=== PATIENT | female | born 1990 ===

== ENCOUNTER 2022-12-13 07:15 | Emergency (ER) | payer OTHER ==
[~2022-12-13] VITALS: Ht 150 cm; Wt 71.6 kg
[2022-12-13] MEDS ORDERED: Tetanus/Diphtheria/Pertussis (Acell) ADULT Vaccine 0.5 ML IM ONE (07:30)
[2022-12-13] MEDS ORDERED: LIDOCAINE 1% INJ 20 ML VIAL IJ ONE (07:30)
--- NOTE | 2022-12-13 07:34 | ED Upper Extremity ---
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, CUTTING HER RIGHT INDEX FINGER OCCURRED JUST PRIOR TO ARRIVAL LAST TETANUS IS UNKNOWN NO MEDICAL PROBLEMS PT HAS NEVER BEEN TO A HOSPITAL NEVER HAD STITCHES BEFORE PCP: NONE Allergies and Home Medications Allergies Coded Allergies: No Known Drug Allergies (Unverified , 12/13/22) Patient Home Medication List Home Medication List Reviewed: Yes Cephalexin (Cephalexin) 500 Mg Tablet, 500 MG PO QID Prescribed by: EMERSON SÁNCHEZ on 12/13/22 0811 Review of Systems Constitutional: no symptoms reported Musculoskeletal: see HPI Skin: see HPI Psychiatric/Neurological: No Symptoms Reported Past Qqldxuw-Tsigzx-Yyqjur Hx Patient Social History Tobacco Use?: No Substance use?: No Alcohol Use?: No Immunizations Up To Date Tetanus Booster (TDap): Unknown Past Medical History Surgeries: No Respiratory: No Cardiac: No Neurological: No Genitourinary: No Gastrointestinal: No Musculoskeletal: No Endocrine: No HEENT: No Cancer: No Psychosocial: No Integumentary: No Blood Disorders: No Physical Exam Vital Signs Vital Signs - First Documented 12/13/22 07:27 Temp 37.3 Pulse 111 Resp 16 B/P (MAP) 166/106 (126) Pulse Ox 97 Capillary Refill : Height, Weight, BMI Height: '" Weight: lbs. oz. kg; BMI Method: General Appearance: WD/WN, no apparent distress Hand: Right (RIGHT INDEX FINGER--PALMAR ASPECT OF DISTAL PHALANX/FINGER PAD WITH 2.5 CM LACERATION. BLEEDING CONTROLLED WITH PRESSURE AT THIS TIME. DISTAL SENSATION INTACT. GOOD CAPILLARY REFILL. MOTOR INTACT--FULL FLEXION AND EXTENSION OF FINGER) Procedures/Interventions Other Wound Location RIGHT INDEX FINGER Wound Length (cm): 2.5 Wound's Depth, Shape: linear, sub Q Wound Explored: clean Irrigated w/ Saline (ccs): 50 Betadine Prep?: No (BETASEPT) Anesthesia: 1% Lidocaine Suture: Ethlion Suture Size: 4-0 Number of Sutures: 6 Sterile Dressing Applied?: Yes Progress STAX SPLINT/FINGER GUARD APPLIED Progress/Results/Core Measures Results/Orders My Orders Orders - EMERSON SÁNCHEZ DO Finger(S) (12/13/22 07:30) Dipht/Pertuss(Acell)/Tet Adult (Dipht/Pe (12/13/22 07:30) Lidocaine 1% Inj 20 Ml (Xylocaine 1% Inj (12/13/22 07:30) Lidocaine 1% Inj 10 Ml (Xylocaine 1% Inj (12/13/22 07:38) Medications Given in ED Current Medications Medications Dose Ordered Sig/Joselyn Route Start Time Stop Time Status Last Admin Dose Admin Diphtheria/ Tetanus/Acell Pertussis 0.5 ml ONCE ONCE IM 12/13/22 07:30 12/13/22 07:31 DC 12/13/22 07:43 0.5 ML Vital Signs/I&O 12/13/22 07:27 Temp 37.3 Pulse 111 Resp 16 B/P (MAP) 166/106 (126) Pulse Ox 97 Progress Progress Note : Progress Note DTP VACCINATION GIVEN NO PRIOR VISITS HERE Departure Impression Primary Impression: Laceration of right index finger Additional Impression: Rhogmylnvl-lurzkzwab-ueqarvd (DPT) vaccination administered at current visit Disposition: 01 HOME, SELF-CARE Condition: Stable Departure-Patient Inst. Decision time for Depature: 08:08 Referrals: NO,LOCAL PHYSICIAN (PCP) Primary Care Physician [facility] Patient Instructions: Laceration Repair With Stitches ED, Diphtheria and Tetanus Toxoids, and Acellular Pertussis Vaccine Add. Discharge Instructions: LEAVE DRESSING IN PLACE FOR 24 HOURS, AFTER THAT YOU MAY GENTLY CLEAN THE WOUND TWICE A DAY WITH SOAP AND WATER ON A Q-TIP OTHERWISE KEEP THE AREA CLEAN AND DRY APPLY FRESH DRESSING TWICE A DAY AND WEAR FINGER GUARD AT ALL TIMES TYLENOL AND MOTRIN NEEDED FOR PAIN FOLLOW UP WITH OCCUPATIONAL HEALTH AT [facility] FOR FURTHER CARE NO WORK UNTIL CLEARED BY OCCUPATIONAL HEALTH SUTURES OUT IN 10 DAYS Scripts Cephalexin (Cephalexin) 500 Mg Tablet 500 MG PO QID, #20 TAB 0 Refills Prov: EMERSON SÁNCHEZ DO 12/13/22 EMERSON SÁNCHEZ DO Dec 13, 2022 07:34
[2022-12-13] MEDS ORDERED: LIDOCAINE 1% INJ 10 ML VIAL ONE (07:38)
--- NOTE | 2022-12-13 08:10 | Diagnostic Imaging Report ---
INDICATION: Finger pain. 3 views were obtained FINDINGS: The alignment is normal. There is no fracture or dislocation. There is a slightly dense round soft tissue density along the volar aspect of the 2nd DIP joint. This is of uncertain etiology. The soft tissues are otherwise unremarkable. IMPRESSION: Abnormal hyperdense round soft tissue density along the volar aspect of the DIP joint of the right 2nd finger. Recommend clinical correlation. No fracture or dislocation Dictated by: Dictated on workstation # [id number]
[2022-12-13] MEDS ORDERED: CEPH500T PO (08:11)
[2022-12-13 08:22] VITALS: BP 166/106
== END 2022-12-13 08:22 | disposition home or self-care (01) ==
LOC: ER 07:19
DX: S61.210A Laceration without foreign body of right index finger without damage to nail, initial encounter (principal); Z23 Encounter for immunization; W26.0XXA Contact with knife, initial encounter; Y92.511 Restaurant or cafe as the place of occurrence of the external cause; Y99.0 Civilian activity done for income or pay
CPT/HCPCS: 12002; 73140; 90715

== ENCOUNTER 2023-02-10 18:00 | Emergency (ER) | payer BC ==
[~2023-02-10] VITALS: Ht 165 cm; Wt 68.0 kg
[~2023-02-10 18:00] MED LIST: CEPH500T PO
[2023-02-10] MEDS ORDERED: NS IV 1000 ML 1,000 ML IV STA ×2 (18:20→19:50)
--- NOTE | 2023-02-10 18:25 | ED Abdominal Pain ---
General Chief Complaint: Abdominal/GI Problems Stated Complaint: RT SIDE PAIN, HEADACHE, VOMITING Source of Information: Patient Exam Limitations: No Limitations History of Present Illness Date Seen by Provider: Feb 10, 2023 Time Seen by Provider: 18:23 Initial Comments Patient is a 32-year-old female presents ED with right-sided abdominal pain. She has been experiencing pain for the past week. Pain is described as sharp without radiation. This pain became worse and constant since yesterday. She did vomit yesterday. She states she has not able to eat secondary to the pain. Denies any diarrhea. Finished her menstrual cycle 2 days ago. No history of previous abdominal surgery. Has been taken Tylenol Motrin without much improvement. Patient in moderate distress on arrival. She denies chest pain, shortness of breath, sore throat, ear pain, fever, chills, pain with urination frequent urination. Allergies and Home Medications Allergies Coded Allergies: No Known Drug Allergies (Unverified , 12/13/22) Patient Home Medication List Home Medication List Reviewed: Yes Cephalexin (Cephalexin) 500 Mg Tablet, 500 MG PO QID Prescribed by: EMERSON SÁNCHEZ on 12/13/22810 Ciprofloxacin HCl (Cipro) 500 Mg Tablet, 500 MG PO BID Prescribed by: NABEEL CHAPA on 02/10/232049 Ondansetron (Ondansetron Odt) 4 Mg Tab.rapdis, 4 MG SL Q4H PRN for NAUSEA/VOMITING Prescribed by: NABEEL CHAPA on 02/10/232049 Review of Systems Review of Systems Constitutional: No chills, No diaphoresis, No malaise, No weakness EENTM: No Double Vision, No Eye Pain Respiratory: Denies Cough, Denies Orthopnea Cardiovascular: Denies Chest Pain Gastrointestinal: Abdominal Pain; Denies Diarrhea; Nausea, Vomiting Genitourinary: Denies Burning, Denies Discharge, Denies Drainage, Denies Frequency, Denies Flank Pain Musculoskeletal: No back pain, No joint pain, No joint swelling, No muscle stiffness Skin: No change in color, No change in hair/nails All Other Systems Reviewed Negative Unless Noted: Yes Past Adpurcq-Clmxaa-Lwtnbj Hx Immunizations Up To Date Tetanus Booster (TDap): Unknown Past Medical History Surgery/Hospitalization HX: pt presents to ed via pov from work with complaints of 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 Surgeries: No Respiratory: No Cardiac: No Neurological: No Genitourinary: No Gastrointestinal: No Musculoskeletal: No Endocrine: No HEENT: No Cancer: No Psychosocial: No Integumentary: No Blood Disorders: No Physical Exam Vital Signs Vital Signs - First Documented 02/10/23 18:14 Temp 39.5 Pulse 127 Resp 18 B/P (MAP) 130/78 (95) Pulse Ox 98 O2 Delivery Room Air Capillary Refill : Height/Weight/BMI Height: '" Weight: lbs. oz. kg; 31.00 BMI Method: General Appearance: WD/WN, no apparent distress HEENT: PERRL/EOMI, normal ENT inspection, TMs normal, pharynx normal Neck: non-tender, full range of motion, supple Respiratory: chest non-tender, lungs clear, normal breath sounds, no respiratory distress, no accessory muscle use Cardiovascular: regular rate, rhythm, no edema, no gallop, no JVD Gastrointestinal: normal bowel sounds, soft, no organomegaly, no pulsatile mass, tenderness (Right lower quadrant tenderness, right upper quadrant tenderness. Mild guarding) Extremities: normal range of motion, non-tender, normal inspection, no pedal edema Back: normal inspection, no CVA tenderness Neurologic/Psychiatric: gas prover II-XII nml as tested, no motor/sensory deficits, alert, normal mood/affect, oriented x 3 Skin: normal color, warm/dry Focused Exam Lactate Level 02/10/23 18:46: Lactic Acid Level 0.84 Lactic Acid Level Laboratory Tests Test 02/10/23 18:46 Lactic Acid Level 0.84 MMOL/L (0.50-2.00) Procedures/Interventions Suture Size: 4-0 Progress/Results/Core Measures Results/Orders Lab Results Laboratory Tests Test 02/10/23 18:17 02/10/23 18:28 02/10/23 18:31 02/10/23 18:46 Range/Units Urine Color ORANGE Urine Clarity CLEAR Urine pH 8.5 5-9 Urine Specific Jet 1.015 L 1.016-1.022 Urine Protein 2+ H NEGATIVE Urine Glucose (UA) TRACE H NEGATIVE Urine Ketones 1+ H NEGATIVE Urine Nitrite POSITIVE H NEGATIVE Urine Bilirubin 1+ H NEGATIVE Urine Urobilinogen 4.0 < = 1.0 MG/DL Urine Leukocyte Esterase NEGATIVE NEGATIVE Urine RBC (Auto) TRACE H NEGATIVE Urine RBC 2-5 H /HPF Urine WBC 5-10 H /HPF Urine Squamous Epithelial Cells 5-10 /HPF Urine Crystals NONE /LPF Urine Bacteria MODERATE H /HPF Urine Casts NONE /LPF Urine Mucus NEGATIVE /LPF Urine Culture Indicated YES White Blood Count 14.8 H 4.3-11.0 10^3/uL Red Blood Count 4.40 3.80-5.11 10^6/uL Hemoglobin 11.7 11.5-16.0 g/dL Hematocrit 36 35-52 % Mean Corpuscular Volume 81 80-99 fL Mean Corpuscular Hemoglobin 27 25-34 pg Mean Corpuscular Hemoglobin Concent 33 32-36 g/dL Red Cell Distribution Width 15.0 H 10.0-14.5 % Platelet Count 326 130-400 10^3/uL Mean Platelet Volume 10.5 9.0-12.2 fL Immature Granulocyte % (Auto) 2 % Neutrophils (%) (Auto) 83 H 42-75 % Lymphocytes (%) (Auto) 8 L 12-44 % Monocytes (%) (Auto) 6 0-12 % Eosinophils (%) (Auto) 0 0-10 % Basophils (%) (Auto) 0 0-10 % Neutrophils # (Auto) 12.3 H 1.8-7.8 10^3/uL Lymphocytes # (Auto) 1.2 1.0-4.0 10^3/uL Monocytes # (Auto) 0.9 0.0-1.0 10^3/uL Eosinophils # (Auto) 0.0 0.0-0.3 10^3/uL Basophils # (Auto) 0.0 0.0-0.1 10^3/uL Immature Granulocyte # (Auto) 0.4 H 0.0-0.1 10^3/uL Neutrophils % (Manual) 84 % Lymphocytes % (Manual) 5 % Monocytes % (Manual) 5 % Eosinophils % (Manual) 0 % Basophils % (Manual) 0 % Band Neutrophils 6 % Anisocytosis SLIGHT Sodium Level 135 135-145 MMOL/L Potassium Level 3.2 L 3.6-5.0 MMOL/L Chloride Level 104 98-107 MMOL/L Carbon Dioxide Level 21 21-32 MMOL/L Anion Gap 10 5-14 MMOL/L Blood Urea Nitrogen 9 7-18 MG/DL Creatinine 0.70 0.60-1.30 MG/DL Estimat Glomerular Filtration Rate 119 BUN/Creatinine Ratio 13 Glucose Level 140 H 70-105 MG/DL Calcium Level 9.0 8.5-10.1 MG/DL Corrected Calcium 9.2 8.5-10.1 MG/DL Total Bilirubin 0.3 0.1-1.0 MG/DL Aspartate Amino Transf (AST/SGOT) 25 5-34 U/L Alanine Aminotransferase (ALT/SGPT) 39 0-55 U/L Alkaline Phosphatase 152 H 40-136 U/L Total Protein 7.3 6.4-8.2 GM/DL Albumin 3.7 3.2-4.5 GM/DL Lipase 21 8-78 U/L Serum Test, Qualitative NEGATIVE NEGATIVE Influenza Type A (RT-PCR) Not Detected Not Detecte Influenza Type B (RT-PCR) Not Detected Not Detecte SARS-CoV-2 RNA (RT-PCR) Not Detected Not Detecte Lactic Acid Level 0.84 0.50-2.00 MMOL/L My Orders Orders - PENNY MIGUEL Ua Culture If Indicated (02/10/23 18:07) Cbc And Automated Diff (02/10/23 18:20) Comprehensive Metabolic Panel (02/10/23 18:20) Lipase (02/10/23 18:20) Ct Abd/Pelv W (Appendicitis) (02/10/23 18:20) Ns Iv 1000 Ml (Ns Iv 1000 Ml) (02/10/23 18:20) Ondansetron Injection (Ondansetron Inj (02/10/23 18:30) Morphine Injection (Morphine Injection (02/10/23 18:30) Hcg,Qualitative Serum (02/10/23 18:20) Covid 19 Inhouse Test (02/10/23 18:29) Influenza A And B By Pcr (02/10/23 18:29) Ketorolac Injection (Ketorolac Injection (02/10/23 18:30) Blood Culture (02/10/23 18:30) Lactic Acid Analyzer (02/10/23 18:30) Manual Differential (02/10/23 18:28) Urine Culture (02/10/23 18:17) Blood Culture (02/10/23 18:35) Iohexol Injection (Omnipaque 350 Mg/Ml 1 (02/10/23 19:15) Ns (Ivpb) 100 Ml (Sodium Chloride 0.9% 1 (02/10/23 19:15) Ceftriaxone Iv/Im (Ceftriaxone Iv/Im) (02/10/23 19:43) Ns Iv 1000 Ml (Ns Iv 1000 Ml) (02/10/23 19:50) Ceftriaxone Iv/Im (Ceftriaxone Iv/Im) (02/10/23 19:50) Ns Iv 1000 Ml (Ns Iv 1000 Ml) (02/10/23 19:56) Neis John Dna Urine Test (02/10/23 20:16) Chlamydia Trachomatis Urine (02/10/23 20:16) Medications Given in ED Current Medications Medications Dose Ordered Sig/Joselyn Route Start Time Stop Time Status Last Admin Dose Admin Iohexol 100 ml ONCE ONCE IV 02/10/23 19:15 02/10/23 19:16 DC 02/10/23 19:11 80 ML Ketorolac Tromethamine 30 mg ONCE ONCE IVP 02/10/23 18:30 02/10/23 18:31 DC 02/10/23 18:54 30 MG Morphine Sulfate 4 mg ONCE ONCE IVP 02/10/23 18:30 02/10/23 18:31 DC 02/10/23 18:32 4 MG Ondansetron HCl 4 mg ONCE ONCE IVP 02/10/23 18:30 02/10/23 18:31 DC 02/10/23 18:31 4 MG Sodium Chloride 100 ml ONCE ONCE IV 02/10/23 19:15 02/10/23 19:16 DC 02/10/23 19:11 80 ML Vital Signs/I&O 02/10/23 02/10/23 18:14 20:56 Temp 39.5 Pulse 127 80 Resp 18 20 B/P (MAP) 130/78 (95) 98/64 Pulse Ox 98 98 O2 Delivery Room Air Room Air Departure Communication (PCP) Reviewed previous ER visits, H&P, lab testing. Differential diagnosis appendicitis, cholecystitis, cholelithiasis, cystitis, pyelonephritis, colitis. Patient tachycardic and febrile on arrival. Septic work-up was initiated. She received Toradol. Patient was febrile at 103. Started on a liter of fluid. CBC showed a white blood count of 14. Left shift with bands. Chemistry potassium of 3.2. Glucose 140. Normal lactic acid. Normal kidney function liver function. Urinalysis positive for infection. Negative for . CT abdomen pelvis shows marked inflammatory changes about the right kidney concerning for pyelonephritis. Early changes of pyelonephritis on the left. Inflammatory changes about the duodenal sweep which is likely reactive. Appendix unremarkable. Bibasilar infiltrates. Likely reactive adenopathy. Due her presentation suggest admission for IV antibiotics IV fluids. She did gloriaiv gary Steven here. She was refusing admission and was requesting something oral to take at home at this time and if symptoms worsen she would return. Discussed with patient that this may potentially get worse and become septic. She acknowledges. Will discharge with oral Cipro due to extensive infection. I did add chlamydia and gonorrhea. Not concern for sexual transmitted faction at this time. provided oral Zofran. Slight improvement of her temperature to 102. She was not wanting to wait at this time and wanted to be discharged. Suggest follow-up your PCP in 1 to 2 days for reevaluation. If any worsening abdominal pain, flank pain or fever or vomiting you need to return for IV antibiotics. Patient may improve with oral antibiotics however my concern with bilateral pyelonephritis this may get worse. Impression Primary Impression: Pyelonephritis Disposition: 01 HOME, SELF-CARE Condition: Stable Departure-Patient Inst. Decision time for Depature: 20:48 Referrals: [facility] [place] ([place]P/Family) Primary Care Physician Patient Instructions: Urinary Tract Infection, Adult ED Add. Discharge Instructions: Needed take antibiotic as prescribed. Suggest follow-up your PCP in 1-2 days for reevaluation. If any worsening symptoms such as back pain, abdominal pain vomiting to return back to ED. All discharge instructions reviewed with patient and/or family. Voiced understanding. Scripts Ondansetron (Ondansetron Odt) 4 Mg Tab.rapdis 4 MG SL Q4H PRN for NAUSEA/VOMITING, #6 TAB Prov: PENNY MIGUEL 02/10/23 Ciprofloxacin HCl (Cipro) 500 Mg Tablet 500 MG PO BID for 7 Days, #14 TAB Prov: PENNY MIGUEL 02/10/23 PENNY MIGUEL Feb 10, 2023 18:25
[2023-02-10] MEDS ORDERED: morphine INJ 4 MG/ML 1 ML (VIAL/SYRINGE) IVP ONE (18:30)
[2023-02-10] MEDS ORDERED: ONDANSETRON INJECTION 4 MG/2 ML (SDV) IVP ONE (18:30)
[2023-02-10] MEDS ORDERED: KETOROLAC INJ 30 MG/ML VIAL IVP ONE (18:30)
[2023-02-10 18:33] LABS: BASOPHILS % (AUTO) 0 % (0-10); EOSINOPHILS % (AUTO) 0 % (0-10); HEMATOCRIT 36 % (35-52); HEMOGLOBIN 11.7 g/dL (11.5-16.0); LYMPHOCYTES # (AUTO) 1.2 10^3/uL (1.0-4.0); LYMPHOCYTES % (AUTO) 8 % (12-44); MEAN CORPUSCULAR HEMOGLOBIN 27 pg (25-34); MEAN CORPUSCULAR HGB CONC 33 g/dL (32-36); MEAN CORPUSCULAR VOLUME 81 fL (80-99); MEAN PLATELET VOLUME 10.5 fL (9.0-12.2); MONOCYTES # (AUTO) 0.9 10^3/uL (0.0-1.0); MONOCYTES % (AUTO) 6 % (0-12); NEUTROPHILS # (AUTO) 12.3 10^3/uL (1.8-7.8); NEUTROPHILS % (AUTO) 83 % (42-75); PLATELET COUNT 326 10^3/uL (130-400); WHITE BLOOD COUNT 14.8 10^3/uL (4.3-11.0)
[2023-02-10 18:37] LABS: BILIRUBIN,URINE 1+ (NEGATIVE); CLARITY,URINE CLEAR; COLOR,URINE ORANGE; GLUCOSE, URINE (UA) TRACE (NEGATIVE); KETONES,URINE 1+ (NEGATIVE); NITRITE,URINE POSITIVE (NEGATIVE); PH,URINE 8.5 (5-9); PROTEIN,URINE 2+ (NEGATIVE)
[2023-02-10 18:38] LABS: BACTERIA,URINE MODERATE /HPF
[2023-02-10 18:39] LABS: LEUKOCYTE ESTERASE ,URINE NEGATIVE (NEGATIVE)
[2023-02-10 18:51] LABS: ALBUMIN 3.7 GM/DL (3.2-4.5); BAND NEUTROPHILS 6 %; LYMPHOCYTES % (MANUAL) 5 %; NEUTROPHILS % (MANUAL) 84 %; POTASSIUM 3.2 MMOL/L (3.6-5.0)
[2023-02-10 18:52] LABS: ANISOCYTOSIS SLIGHT; BASOPHILS % (MANUAL) 0 %; EOSINOPHILS % (MANUAL) 0 %; MONOCYTES % (MANUAL) 5 %
[2023-02-10 18:54] LABS: TOTAL PROTEIN 7.3 GM/DL (6.4-8.2)
[2023-02-10 18:56] LABS: BILIRUBIN,TOTAL 0.3 MG/DL (0.1-1.0)
[2023-02-10 18:57] LABS: CREATININE SERUM 0.7 MG/DL (0.60-1.30)
[2023-02-10] MEDS ORDERED: NS 100 ML (IVPB) BAG IV ONE (19:15)
[2023-02-10] MEDS ORDERED: IOHEXOL 350 MG/ML 100 ML (OMNIPAQUE 350) VIAL IV ONE (19:15)
--- NOTE | 2023-02-10 19:42 | Diagnostic Imaging Report ---
INDICATION: Nausea, vomiting, right lower quadrant pain and fever x 4 days. EXAMINATION: CT abdomen and pelvis with contrast, 02/10/2023. All CT scans use one or more of the following dose optimizing techniques: automated exposure control, MA and/or KvP adjustment based on patient size and exam type or iterative reconstruction. FINDINGS: There are bibasilar infiltrates at the lung bases. The liver, gallbladder, spleen and pancreas as well as adrenal glands unremarkable. There is heterogeneity and enhancement of both kidneys, much worse on the right. There is fat stranding about the right kidney. There is bilateral hydronephrosis, mild in nature, right greater than left. There are no distal obstructive stones. The urinary bladder unremarkable. Appendix normal. Prominent lymph nodes in the right lower quadrant likely reactive. Inflammatory change is seen about the right aspect of the proximal duodenum likely due to the findings in the adjacent kidney. A duodenitis less likely. There is no free air. No significant free fluid. No acute osseous abnormality is appreciated IMPRESSION: 1. Marked inflammatory change about the right kidney with abnormal enhancement and hydronephrosis. Findings highly suspicious for pyelonephritis. Early changes of pyelonephritis suspected on the left, as above. 2. Inflammatory change about the duodenal sweep which is likely reactive from the adjacent findings in the kidney with duodenitis less likely. 3. Appendix unremarkable. 4. Bibasilar infiltrates. 5. Likely reactive adenopathy. Dictated by: Dictated on workstation # [id number]
[2023-02-10] MEDS ORDERED: cefTRIAXone IV/IM 1,000 MG in NS (IVPB) 50 ML 50 ML IV STA ×2 (19:43→19:50)
[2023-02-10] MEDS ORDERED: NS IV 1000 ML 1,000 ML ONE (19:56)
[2023-02-10] MEDS ORDERED: ONDA4TAB11 SL (20:50)
[2023-02-10] MEDS ORDERED: CIPR-225 PO (20:50)
[2023-02-10 20:56] VITALS: BP 98/64
[2023-02-11] MEDS ORDERED: ONDA4TAB11 SL (14:36)
[2023-02-11] MEDS ORDERED: CIPR-225 PO (14:36)
[2023-02-14] MEDS ORDERED: SULF1TAB38 PO ×2 (10:48→11:39)
== END 2023-02-10 20:59 | disposition home or self-care (01) ==
LOC: EDUNIT# 18:00 → ER 18:06
DX: N12 Tubulo-interstitial nephritis, not specified as acute or chronic (principal)
CPT/HCPCS: 36415; 74177; 80053; 81000; 83605; 83690; 84703; 85007; 85027; 87040; 87077; 87088; 87186; 87491; 87591; 87636; 96361; 96365; 96375

== ENCOUNTER 2023-02-11 12:15 | Inpatient (IN) | payer BC ==
[~2023-02-11] VITALS: Ht 162.6 cm; Wt 65.8 kg
[~2023-02-11 12:15] MED LIST changes: +CIPR-225 PO; +ONDA4TAB11 SL
[2023-02-11] MEDS ORDERED: NS IV 1000 ML 1,000 ML IV STA (12:27)
--- NOTE | 2023-02-11 12:55 | ED Abdominal Pain ---
General Chief Complaint: Abdominal/GI Problems Stated Complaint: ABD PAIN Nursing Triage Note: PT PRESENTS WITH RT UPPER ABD PAIN, WAS SEEN HERE LAST NIGHT FOR THE SAME, DX WITH UTI AND KIDNEY INFECTION Source of Information: Patient Exam Limitations: No Limitations (PENNY MIGUEL) History of Present Illness Date Seen by Provider: Feb 11, 2023 Time Seen by Provider: 12:55 Initial Comments Patient is a 32-year-old female who presents to the ED with right-sided abdominal pain. Pain to her right upper quadrant and right flank. She reports pain over the past week. Pain became worse over the past few days. Patient states she Was seen here yesterday diagnosed with pyelonephritis. It was recommend admission but she wanted to attempt oral antibiotics. Since she went home continue worsening pain vomiting. No improvement with rgqx-alb-jqwygnw pain medication. She is continue having pain with urination and feeling feverish. Denies any diarrhea. She was able to take 1 dose of Cipro. She denies chest pain, shortness of breath, cough, visual changes. (PENNY MIGUEL) Allergies and Home Medications Allergies Coded Allergies: No Known Drug Allergies (Unverified , 12/13/22) Patient Home Medication List Home Medication List Reviewed: Yes (PENNY MIGUEL) Ciprofloxacin HCl (Cipro) 500 Mg Tablet, 500 MG PO BID, (Reported) Entered as Reported by: SHANNON ABDI on 02/11/231435 Last Action: Reviewed Ondansetron (Ondansetron Odt) 4 Mg Tab.rapdis, 4 MG SL Q4H PRN for NAUSEA/VOMITING-1ST LINE, (Reported) Entered as Reported by: SHANNON ABDI on 02/11/23 143 Last Action: Reviewed Discontinued Medications Cephalexin (Cephalexin) 500 Mg Tablet, 500 MG PO QID Discontinued Reason: No Longer Taking Prescribed by: EMERSON SÁNCHEZ on 12/13/22 0811 Last Action: Discontinued Ciprofloxacin HCl (Cipro) 500 Mg Tablet, 500 MG PO BID Discontinued Reason: Duplicate Order Prescribed by: NABEEL CHAPA on 02/10/232049 Last Action: Discontinued Ondansetron (Ondansetron Odt) 4 Mg Tab.rapdis, 4 MG SL Q4H PRN for NAUSEA/VOMITING Discontinued Reason: Duplicate Order Prescribed by: NABEEL CHAPA on 02/10/232049 Last Action: Discontinued Review of Systems Review of Systems Constitutional: No chills, No diaphoresis, No malaise, No weakness EENTM: No Double Vision, No Eye Pain Respiratory: Denies Cough Cardiovascular: Denies Chest Pain Gastrointestinal: Abdominal Pain; Denies Diarrhea; Nausea, Vomiting Genitourinary: Denies Burning, Denies Discharge Musculoskeletal: No back pain, No joint pain Skin: No change in color, No change in hair/nails Psychiatric/Neurological: Denies Anxiety, Denies Depressed (PENNY MIGUEL) All Other Systems Reviewed Negative Unless Noted: Yes (PENNY MIGUEL) Past Awouqbh-Ztauvc-Pvmkue Hx Patient Social History Tobacco Use?: No Substance use?: No Alcohol Use?: No (PENNY MIGUEL) Immunizations Up To Date Tetanus Booster (TDap): Unknown First/Initial COVID19 Vaccinat: NO (PENNY MIGUEL) Past Medical History Surgery/Hospitalization HX: MED NO HX Surgeries: No Respiratory: No Cardiac: No Neurological: No Last Menstrual Period: Feb 08, 2023 Genitourinary: No Gastrointestinal: No Musculoskeletal: No Endocrine: No HEENT: No Cancer: No Psychosocial: No Integumentary: No Blood Disorders: No (PENNY MIGUEL) Physical Exam Vital Signs Vital Signs - First Documented 02/11/23 12:43 Temp 37.8 Pulse 102 Resp 22 B/P (MAP) 105/69 (81) Pulse Ox 96 O2 Delivery Room Air (OUSMANE MCQUEEN MD) Vital Signs Capillary Refill : Less Than 3 Seconds (PENNY MIGUEL) Height/Weight/BMI Height: '" Weight: lbs. oz. kg; 25.00 BMI Method: General Appearance: WD/WN, no apparent distress HEENT: PERRL/EOMI, normal ENT inspection, TMs normal, pharynx normal Neck: non-tender, full range of motion, supple, normal inspection Respiratory: chest non-tender, lungs clear, normal breath sounds, no res piratory distress, no accessory muscle use Cardiovascular: regular rate, rhythm, no edema, no gallop, no JVD Gastrointestinal: normal bowel sounds, soft, no organomegaly, tenderness (Right upper quadrant tenderness, right flank tenderness. Normal bowel sounds throughout.) Extremities: normal range of motion, non-tender, normal inspection, no pedal edema Back: normal inspection, no CVA tenderness Neurologic/Psychiatric: communications department chairperson II-XII nml as tested, no motor/sensory deficits, alert, normal mood/affect, oriented x 3 Skin: normal color, warm/dry (PENNY MIGUEL) Focused Exam Lactate Level 02/11/23 13:01: Lactic Acid Level 0.87 (OUSMANE MCQUEEN MD) Lactic Acid Level Laboratory Tests Test 02/11/23 13:01 Lactic Acid Level 0.87 MMOL/L (0.50-2.00) (OUSMANE MCQUEEN MD) Procedures/Interventions Suture Size: 4-0 (PENNY MIGUEL) Progress/Results/Core Measures Results/Orders Lab Results Laboratory Tests Test 02/11/23 13:01 02/11/23 13:44 Range/Units White Blood Count 12.2 H 4.3-11.0 10^3/uL Red Blood Count 4.09 3.80-5.11 10^6/uL Hemoglobin 10.7 L 11.5-16.0 g/dL Hematocrit 33 L 35-52 % Mean Corpuscular Volume 81 80-99 fL Mean Corpuscular Hemoglobin 26 25-34 pg Mean Corpuscular Hemoglobin Concent 32 32-36 g/dL Red Cell Distribution Width 15.3 H 10.0-14.5 % Platelet Count 335 130-400 10^3/uL Mean Platelet Volume 10.6 9.0-12.2 fL Immature Granulocyte % (Auto) 1 % Neutrophils (%) (Auto) 81 H 42-75 % Lymphocytes (%) (Auto) 10 L 12-44 % Monocytes (%) (Auto) 7 0-12 % Eosinophils (%) (Auto) 0 0-10 % Basophils (%) (Auto) 0 0-10 % Neutrophils # (Auto) 9.8 H 1.8-7.8 10^3/uL Lymphocytes # (Auto) 1.3 1.0-4.0 10^3/uL Monocytes # (Auto) 0.9 0.0-1.0 10^3/uL Eosinophils # (Auto) 0.0 0.0-0.3 10^3/uL Basophils # (Auto) 0.1 0.0-0.1 10^3/uL Immature Granulocyte # (Auto) 0.2 H 0.0-0.1 10^3/uL Sodium Level 135 135-145 MMOL/L Potassium Level 2.9 L 3.6-5.0 MMOL/L Chloride Level 104 98-107 MMOL/L Carbon Dioxide Level 23 21-32 MMOL/L Anion Gap 8 5-14 MMOL/L Blood Urea Nitrogen 5 L 7-18 MG/DL Creatinine 0.65 0.60-1.30 MG/DL Estimat Glomerular Filtration Rate 121 BUN/Creatinine Ratio 8 Glucose Level 107 H 70-105 MG/DL Lactic Acid Level 0.87 0.50-2.00 MMOL/L Calcium Level 8.6 8.5-10.1 MG/DL Corrected Calcium 9.0 8.5-10.1 MG/DL Total Bilirubin 0.3 0.1-1.0 MG/DL Aspartate Amino Transf (AST/SGOT) 26 5-34 U/L Alanine Aminotransferase (ALT/SGPT) 36 0-55 U/L Alkaline Phosphatase 140 H 40-136 U/L C-Reactive Protein High Sensitivity 30.71 H 0.00-0.50 MG/DL Total Protein 7.0 6.4-8.2 GM/DL Albumin 3.5 3.2-4.5 GM/DL Lipase 15 8-78 U/L Urine Color YELLOW Urine Clarity CLEAR Urine pH 7.0 5-9 Urine Specific [place] 1.025 H 1.016-1.022 Urine Protein 1+ H NEGATIVE Urine Glucose (UA) NEGATIVE NEGATIVE Urine Ketones 1+ H NEGATIVE Urine Nitrite NEGATIVE NEGATIVE Urine Bilirubin NEGATIVE NEGATIVE Urine Urobilinogen 0.2 < = 1.0 MG/DL Urine Leukocyte Esterase 3+ H NEGATIVE Urine RBC (Auto) TRACE H NEGATIVE Urine RBC 0-2 /HPF Urine WBC 10-25 H /HPF Urine Squamous Epithelial Cells 10-25 H /HPF Urine Crystals NONE /LPF Urine Bacteria MODERATE H /HPF Urine Casts NONE /LPF Urine Mucus NEGATIVE /LPF Urine Culture Indicated YES (OUSMANE MCQUEEN MD) My Orders Orders - OUSMANE MCQUEEN MD Ua Culture If Indicated (02/11/23 12:25) (OUSMANE MCQUEEN MD) Medications Given in ED Current Medications Medications Dose Ordered Sig/Joselyn Route Start Time Stop Time Status Last Admin Dose Admin Ondansetron HCl 4 mg ONCE ONCE IVP 02/11/23 13:00 02/11/23 13:01 DC 02/11/23 13:12 4 MG (OUSMANE MCQUEEN MD) Vital Signs/I&O 02/11/23 12:43 Temp 37.8 Pulse 102 Resp 22 B/P (MAP) 105/69 (81) Pulse Ox 96 O2 Delivery Room Air (OUSMANE MCQUEEN MD) Blood Pressure Mean: 81 Departure Communication (PCP) Reviewed previous ER visits, H&P, lab testing. Patient was seen here yesterday diagnosed with right pyelonephritis, potential early pyelonephritis of the left. Pain of the right side of abdomen upper quadrant and right flank for the past week. Vomiting few days ago. Continue vomiting without much pain improvement. patient did receive Rocephin in the ER yesterday and discharged with Cipro. Took 1 dose this morning but then immediately came to the ER. Patient mild- moderate distress. Febrile and tachycardic. Septic work-up was initiated. White blood count noted 12. Potassium 2.9, normal lactic acid, CRP at 30. Did ultrasound right upper quadrant secondary to tenderness which did not show any evidence of acute cholecystitis or cholelithiasis. Fatty liver. CT abdomen pelvis yesterday positive for pyelonephritis. STD cultures pending. Urinalysis positive for infection. She is not concerned for STDs. Patient was started on Zosyn. She started on a liter of fluid. Patient will be admitted to the hospitalist. Discussed patient with Dr. Spangler who agreed to accept patient. accepting under Dr. Dunaway. (PENNY MIGUEL) Impression Primary Impression: Pyelonephritis Disposition: ADMITTED INPATIENT Condition: Stable Admissions Decision to Admit Reason: Admit from ER (General) Decision to Admit/Date: Feb 11, 2023 Time/Decision to Admit Time: 13:01 (PENNY MIGUEL) Departure-Patient Inst. Referrals: [facility] [place] (PCP/Family) Primary Care Physician ATTENDING PHYSICIAN NOTE: I was physically present as attending physician in the emergency department during the care of this patient, but I was not directly involved in the decision making or delivery of care for this patient. (OUSMANE MCQUEEN MD) PENNY MIGUEL Feb 11, 2023 12:55 OUSMANE MCQUEEN MD Feb 11, 2023 22:08
[2023-02-11] MEDS ORDERED: fentaNYL INJECTION 100 MCG/2 ML VIAL IVP STA (12:56)
[2023-02-11] MEDS ORDERED: ONDANSETRON INJECTION 4 MG/2 ML (SDV) IVP ONE (13:00)
[2023-02-11 13:17] LABS: BASOPHILS # (AUTO) 0.1 10^3/uL (0.0-0.1); BASOPHILS % (AUTO) 0 % (0-10); EOSINOPHILS % (AUTO) 0 % (0-10); HEMATOCRIT 33 % (35-52); HEMOGLOBIN 10.7 g/dL (11.5-16.0); LYMPHOCYTES # (AUTO) 1.3 10^3/uL (1.0-4.0); LYMPHOCYTES % (AUTO) 10 % (12-44); MEAN CORPUSCULAR HEMOGLOBIN 26 pg (25-34); MEAN CORPUSCULAR HGB CONC 32 g/dL (32-36); MEAN CORPUSCULAR VOLUME 81 fL (80-99); MEAN PLATELET VOLUME 10.6 fL (9.0-12.2); MONOCYTES # (AUTO) 0.9 10^3/uL (0.0-1.0); MONOCYTES % (AUTO) 7 % (0-12); NEUTROPHILS # (AUTO) 9.8 10^3/uL (1.8-7.8); NEUTROPHILS % (AUTO) 81 % (42-75); PLATELET COUNT 335 10^3/uL (130-400); WHITE BLOOD COUNT 12.2 10^3/uL (4.3-11.0)
[2023-02-11 13:24] LABS: ALBUMIN 3.5 GM/DL (3.2-4.5); POTASSIUM 2.9 MMOL/L (3.6-5.0)
[2023-02-11 13:25] LABS: CALCIUM 8.6 MG/DL (8.5-10.1)
[2023-02-11 13:28] LABS: BILIRUBIN,TOTAL 0.3 MG/DL (0.1-1.0)
[2023-02-11 13:30] LABS: CREATININE SERUM 0.65 MG/DL (0.60-1.30)
--- NOTE | 2023-02-11 13:54 | Diagnostic Imaging Report ---
PROCEDURE: US Gallbladder. TECHNIQUE: Multiple real-time grayscale images were obtained over the right upper quadrant in various projections. INDICATION: Right upper quadrant pain. COMPARISON: Exam is correlated with CT 02/10/2023. FINDINGS: There is echodense fatty infiltration of the liver with areas of fatty sparing, incidentally noted. Gallbladder is normal. No bile duct dilatation. The portal vein is patent and showed normal directional flow. There is no ascites. The unobstructed right kidney at 12 cm, normal. No gallbladder sludge or visible stone. The gallbladder wall is non-thickened. There is no pericholecystic fluid. IMPRESSION: Fatty liver; otherwise, normal right upper quadrant ultrasound. Dictated by: Dictated on workstation # [id number]
[2023-02-11] MEDS ORDERED: ACETAMINOPHEN 325 MG TABLET PO ONE (14:00)
[2023-02-11] MEDS ORDERED: PIPERACILLIN/Tazobactam 4.5 GM in NS (IVPB) 100 ML 100 ML IV ONE (14:00)
[2023-02-11 14:04] LABS: CLARITY,URINE CLEAR; COLOR,URINE YELLOW
[2023-02-11 14:05] LABS: BACTERIA,URINE MODERATE /HPF; BILIRUBIN,URINE NEGATIVE (NEGATIVE); GLUCOSE, URINE (UA) NEGATIVE (NEGATIVE); KETONES,URINE 1+ (NEGATIVE); LEUKOCYTE ESTERASE ,URINE 3+ (NEGATIVE); NITRITE,URINE NEGATIVE (NEGATIVE); PROTEIN,URINE 1+ (NEGATIVE); RBC,URINE 0-2 /HPF
--- NOTE | 2023-02-11 14:22 | History & Physical-Hospitalist ---
RAJAT DUMAS MD, RESIDENT 02/11/23 1422: History of Present Illness HPI/Chief Complaint CC: Fever Patient is a 32-year-old female with no past medical history presenting with abdominal pain. She states the pain started initially in the right upper quadrant about 1 week ago, radiating into her back. On Tuesday, she did notice fever. She states she was evaluated in clinic a couple days later where a urine test was done. Patient was told that she was just dehydrated at the time. However patient notes that pain did not resolve. She presented to the ED yesterday where it was noted that she was septic with pyelonephritis. She was recommended to be admitted to the ED however patient declined at the time. She was sent home with ciprofloxacin which they were not able to machine pecan picker until this morning. However patient took first dose this morning and immediately vomited it up. She is continuing to have some nausea at this time as well as some right upper quadrant and flank pain. She denies any chest pain, shortness of breath, dysuria, suprapubic pain, diarrhea, constipation. No history of abdominal surgeries. Patient not on any medications at home. Source: patient Exam Limitations: no limitations Date Seen 02/11/23 Time Seen by a Provider: 14:18 Attending Physician [facility] PCP Admitting Physician: Cassidy Dunaway DO Attending Physician: Cassidy Dunaway DO Referring Physician Date of Admission Feb 11, 2023 at 13:59 Home Medications & Allergies Home Medications Reviewed patient Home Medication Reconciliation performed by pharmacy medication reconciliations park maintenance technician and/or nursing. Patients Allergies have been reviewed. Allergies Allergies Coded Allergies No Known Drug Allergies (Unverified12/13/22) Past Ufnfyhf-Utmhki-Wllogv Hx Patient Social History Tobacco Use?: No Substance use?: No Alcohol Use?: No Immunizations Up To Date First/Initial COVID19 Vaccinat: NO Tetanus Booster (TDap): Unknown Current Status status: No Primary Language: Georgian Preferred Spoken Language: Georgian Past Medical History Blood Disorders: No Review of Systems Constitutional: chills, fever EENTM: No nose congestion Respiratory: No cough, No dyspnea on exertion, No short of breath Cardiovascular: No chest pain, No edema Gastrointestinal: RUQ; No constipation, No diarrhea; nausea, vomiting Genitourinary: No dysuria Musculoskeletal: back pain Physical Exam Physical Exam Vital Signs Vital Signs - First Documented 02/11/23 12:43 Temp 37.8 Pulse 102 Resp 22 B/P (MAP) 105/69 (81) Pulse Ox 96 O2 Delivery Room Air Capillary Refill : Less Than 3 Seconds Height, Weight, BMI Height: '" Weight: lbs. oz. kg; 25.00 BMI Method: General Appearance: Mild Distress HEENT: Normal ENT Inspection Neck: Full Range of Motion, Normal Inspection Respiratory: Chest Non Tender, Lungs Clear, Normal Breath Sounds, No Accessory Muscle Use, No Respiratory Distress Cardiovascular: Regular Rate, Rhythm, No Edema, No Murmur Gastrointestinal: Normal Bowel Sounds, Soft, Tenderness (Right upper quadrant and right flank tenderness) Back: CVA Tenderness (R) Neurologic/Psychiatric: Alert, Oriented x3 Skin: Normal Color, Warm/Dry Results Results/Procedures Labs Laboratory Tests 02/11/23 13:01 Patient resulted labs reviewed. Imaging: Reviewed Imaging Films, Reviewed Imaging Report Imaging CT abdomen/pelvis (02/10/2023): IMPRESSION: 1. Marked inflammatory change about the right kidney with abnormal enhancement and hydronephrosis. Findings highly suspicious for pyelonephritis. Early changes of pyelonephritis suspected on the left, as above. 2. Inflammatory change about the duodenal sweep which is likely reactive from the adjacent findings in the kidney with duodenitis less likely. 3. Appendix unremarkable. 4. Bibasilar infiltrates. 5. Likely reactive adenopathy. Gallbladder ultrasound (02/11/2023): IMPRESSION: Fatty liver; otherwise, normal right upper quadrant ultrasound. Assessment/Plan Admission Diagnosis 32-year-old female presenting with sepsis secondary to pyelonephritis. Admission Status: Observation Diagnosis/Problems Diagnosis/Problems (1) Sepsis Status: Acute Assessment & Plan: Patient meets sepsis criteria with leukocytosis and tachycar jl. Source of infection at this time is from the urine. Lactate normal. Plan: Continue IV fluids Antibiotics per below Follow-up blood cultures and urine culture Qualifiers: Sepsis type: sepsis due to unspecified organism Sepsis acute organ d ysfunction status: without acute organ dysfunction Qualified Codes: A41.9 - Sepsis, unspecified organism (2) Pyelonephritis Status: Acute Assessment & Plan: Patient noted to have pyelonephritis in the right kidney on CT abdomen/pelvis from yesterday with early signs of pyelonephritis in the left kidney. UA is notable today for infection although does have 10-25 squamous epithelial cells. Plan: Continue treatment with IV Zosyn Follow-up urine culture Pain management (3) RUQ abdominal pain Status: Acute Assessment & Plan: Patient noted to have right upper quadrant pain. Gallbladder ultrasound was negative, notable for fatty liver. Lipase also negative. Likely referred pain from pyelonephritis. (4) Nausea & vomiting Status: Acute Assessment & Plan: Inability to tolerate orals at this time. Plan: Continue IV antibiotics as per above Antiemetics Clear liquid diet, advance as tolerated (5) Hypokalemia Status: Acute Assessment & Plan: Noted to be hypokalemic to 2.9. We will replete with IV potassium. CASSIDY DUNAWAY DO 02/12/23 0619: History of Present Illness HPI/Chief Complaint Chief complaint: Acute pyelonephritis HPI: This is a 32-year-old female who presented with acute abdominal pain and fever found to have pyelonephritis in need of IV antibiotics since p.o. was not tolerated. Source: patient Exam Limitations: no limitations Past Riwlczu-Wmcvmg-Etqofd Hx Patient Social History Marrital Status: Employed/Student: employed Review of Systems Constitutional: see HPI, fever Physical Exam Physical Exam General Appearance: Anxious, Mild Distress Eyes: Right Eye Normal Inspection, Right Eye PERRL HEENT: PERRL/EOMI, TMs Normal, Normal ENT Inspection, Pharynx Normal, Moist Mucous Membranes Neck: Full Range of Motion, Normal Inspection, Non Tender Respiratory: Chest Non Tender, Lungs Clear, Normal Breath Sounds, No Accessory Muscle Use, No Respiratory Distress Cardiovascular: Regular Rate, Rhythm, No Edema, No Gallop, No JVD, No Murmur, Normal Peripheral Pulses Gastrointestinal: Normal Bowel Sounds, No Organomegaly, No Pulsatile Mass, Non Tender, Soft Back: Normal Inspection, No CVA Tenderness, No Vertebral Tenderness Extremity: Normal Capillary Refill, Normal Inspection, Normal Range of Motion, Non Tender, No Calf Tenderness, No Pedal Edema Neurologic/Psychiatric: Alert, Oriented x3, No Motor/Sensory Deficits, Normal Mood/Affect Skin: Normal Color, Warm/Dry Lymphatic: No Adenopathy Assessment/Plan Admission Diagnosis Assessment: Sepsis Pyelonephritis Nausea and vomiting IV antibiotics IV fluids Admission Status: Observation RAJAT DUMAS MD, RESIDENT Feb 11, 2023 14:22 CASSIDY DUNAWAY DO Feb 12, 2023 06:19
[2023-02-11] MEDS ORDERED: ONDA4TAB11 SL (14:36)
[2023-02-11] MEDS ORDERED: CIPR-225 PO (14:36)
[2023-02-11] MEDS ORDERED: LACTULOSE SYRUP 10GM/15ML 30ML UDC PO PRN (15:30)
[2023-02-11] MEDS ORDERED: NALOXONE 0.4 MG/ML 1 ML VIAL IV PRN (15:30)
[2023-02-11] MEDS ORDERED: ONDANSETRON 4 MG ORAL DISSOLVE TABLET PO PRN (15:30)
[2023-02-11] MEDS ORDERED: POTASSIUM CL 10MEQ/50ML IVPB 50 ML IV SCH (15:30)
[2023-02-11] MEDS ORDERED: MILK OF MAGNESIA 400 MG/5 ML 30 ML UDC PO PRN (15:30)
[2023-02-11] MEDS ORDERED: diphenhydrAMINE 25 MG TABLET PO PRN (15:30)
[2023-02-11] MEDS ORDERED: BISACODYL 10 MG SUPPOSITORY PR PRN (15:30)
[2023-02-11] MEDS ORDERED: ACETAMINOPHEN 325 MG TABLET PO PRN (15:30)
[2023-02-11] MEDS ORDERED: diphenhydrAMINE INJ 50 MG/ML VIAL IVP PRN (15:30)
[2023-02-11] MEDS ORDERED: ANTACID SUSPENSION 30 ML UDC PO PRN (15:30)
[2023-02-11] MEDS ORDERED: PIPERACILLIN/Tazobactam 4.5 GM in NS (IVPB) 100 ML 100 ML IV SCH (15:30)
[2023-02-11] MEDS ORDERED: CALCIUM CARBONATE 500 MG CHEW TABLET PO PRN (15:30)
[2023-02-11 15:40] VITALS: BP 107/59
[2023-02-11] MEDS: NS IV 1000 ML 1,000 ML IV SCH ×2 (16:08→22:24)
[2023-02-11] MEDS: ENOXAPARIN 40 MG/0.4 ML SYRINGE SC SCH (16:09)
[2023-02-11] MEDS: POTASSIUM CL 10MEQ/50ML IVPB 50 ML IV SCH ×3 (17:52→22:24)
[2023-02-11 19:28] VITALS: BP 108/59
[2023-02-11] MEDS: PIPERACILLIN/Tazobactam 4.5 GM in NS (IVPB) 100 ML 100 ML IV SCH (20:53)
[2023-02-11] MEDS: DOCUSATE SODIUM 100 MG CAPSULE PO SCH (21:04)
[2023-02-11] MEDS: SENNOSIDES 8.6 MG TABLET PO SCH (21:04)
[2023-02-11] MEDS: ONDANSETRON INJECTION 4 MG/2 ML (SDV) IV PRN (23:40)
[2023-02-11] MEDS: morphine INJ 4 MG/ML 1 ML (VIAL/SYRINGE) IV PRN (23:40)
[2023-02-11 23:44] VITALS: BP 114/64
[2023-02-12] MEDS: POTASSIUM CL 10MEQ/50ML IVPB 50 ML IV SCH (00:20)
[2023-02-12] MEDS: morphine INJ 4 MG/ML 1 ML (VIAL/SYRINGE) IV PRN (03:26)
[2023-02-12] MEDS: PIPERACILLIN/Tazobactam 4.5 GM in NS (IVPB) 100 ML 100 ML IV SCH ×2 (03:56→11:45)
[2023-02-12 04:02] VITALS: BP 114/64
[2023-02-12] MEDS: NS IV 1000 ML 1,000 ML IV SCH ×2 (05:14→15:04)
[2023-02-12 05:15] LABS: HEMATOCRIT 31 % (35-52); HEMOGLOBIN 9.9 g/dL (11.5-16.0); MEAN CORPUSCULAR HEMOGLOBIN 26 pg (25-34); MEAN CORPUSCULAR HGB CONC 33 g/dL (32-36); MEAN CORPUSCULAR VOLUME 80 fL (80-99); MEAN PLATELET VOLUME 10.5 fL (9.0-12.2); PLATELET COUNT 328 10^3/uL (130-400); WHITE BLOOD COUNT 9.8 10^3/uL (4.3-11.0)
[2023-02-12 05:30] LABS: ALBUMIN 3.1 GM/DL (3.2-4.5); POTASSIUM 3.4 MMOL/L (3.6-5.0)
[2023-02-12 05:32] LABS: CALCIUM 8.1 MG/DL (8.5-10.1)
[2023-02-12 05:33] LABS: TOTAL PROTEIN 6.2 GM/DL (6.4-8.2)
[2023-02-12 05:35] LABS: BILIRUBIN,TOTAL 0.3 MG/DL (0.1-1.0)
[2023-02-12 05:36] LABS: CREATININE SERUM 0.63 MG/DL (0.60-1.30)
[2023-02-12] MEDS ORDERED: POTASSIUM CHLORIDE 20 MEQ TABLET PO ONE (06:15)
[2023-02-12 07:30] VITALS: BP 114/70
[2023-02-12] MEDS: DOCUSATE SODIUM 100 MG CAPSULE PO SCH ×2 (07:51→19:48)
[2023-02-12] MEDS: SENNOSIDES 8.6 MG TABLET PO SCH ×2 (07:51→19:47)
--- NOTE | 2023-02-12 09:27 | Progress Note ---
RAJAT DUMAS MD, RESIDENT 02/12/23 0927: Subjective HPI/CC On Admission Date Seen by Provider: Feb 12, 2023 Time Seen by Provider: 08:45 Chief complaint: Acute pyelonephritis HPI: This is a 32-year-old female who presented with acute abdominal pain and fever found to have pyelonephritis in need of IV antibiotics since p.o. was not tolerated. Subjective/Events-last exam Patient doing well this morning. States that her nausea and vomiting has resolved. She is continuing to have right upper quadrant and flank pain but states that it is a 5 out of 10 today and is more tolerable. She is feeling a little bit better compared to when she first came in. Denying any suicidal ideation or homicidal ideation this morning. States her mood is okay today. Review of Systems General: No Fatigue HEENT: No Head Aches Pulmonary: No Dyspnea, No Cough Cardiovascular: No: Chest Pain, Palpitations, Edema Gastrointestinal: Abdominal Pain; No: Nausea, Vomiting, Diarrhea, Constipation Genitourinary: No Dysuria Focused Exam Lactate Level 02/11/23 13:01: Lactic Acid Level 0.87 Objective Exam Vital Signs Vital Signs Date Time Temp Pulse Resp B/P (MAP) Pulse Ox O2 Delivery O2 Flow Rate FiO2 02/12/23 07:30 36.9 93 16 114/70 (85) 95 Room Air Capillary Refill : Less Than 3 Seconds General Appearance: No Apparent Distress HEENT: Normal ENT Inspection Neck: Full Range of Motion, Normal Inspection Respiratory: Chest Non Tender, Lungs Clear, Normal Breath Sounds, No Accessory Muscle Use, No Respiratory Distress Cardiovascular: Regular Rate, Rhythm, No Edema, No Murmur Gastrointestinal: Normal Bowel Sounds, Soft, Tenderness (Mild right flank tenderness however much improved compared to yesterday) Extremity: No Pedal Edema Neurologic/Psychiatric: Alert, Oriented x3 Skin: Normal Color, Warm/Dry Results/Procedures Lab Laboratory Tests 02/11/23 13:01 02/12/23 04:42 Patient resulted labs reviewed. Imaging: Reviewed Imaging Films, Reviewed Imaging Report Assessment/Plan Assessment and Plan Assess & Plan/Chief Complaint 32-year-old female presenting with pyelonephritis. Diagnosis/Problems Diagnosis/Problems (1) Sepsis Status: Resolved Assessment & Plan: Patient meets sepsis criteria with leukocytosis and tachycardia. Source of infection at this time is from the urine. Lactate normal. Sepsis resolved at this time as leukocytosis has resolved and patient is no longer tachycardic. Plan: Continue IV fluids, will discontinue if patient tolerates breakfast Antibiotics per below Follow-up blood cultures and urine culture Qualifiers: Qualified Codes: A41.9 - Sepsis, unspecified organism Resolution Date/Time: 02/12/23 @ 09:25 (2) Pyelonephritis Status: Acute Assessment & Plan: Patient noted to have pyelonephritis in the right kidney on CT abdomen/pelvis from yesterday with early signs of pyelonephritis in the left kidney. UA is notable today for infection although does have 10-25 squamous epithelial cells. Plan: Continue treatment with IV Zosyn Follow-up urine culture, will transition to orals once urine culture is back Pain management (3) RUQ abdominal pain Status: Acute Assessment & Plan: Patient noted to have right upper quadrant pain. Gallbladder ultrasound was negative, notable for fatty liver. Lipase also negative. Likely referred pain from pyelonephritis. (4) Nausea & vomiting Status: Resolved Assessment & Plan: Tolerating oral intake today. Plan: Continue IV antibiotics as per above Antiemetics Clear liquid diet, advance to general today Resolution Date/Time: 02/12/23 @ 09:26 (5) Hypokalemia Status: Acute Assessment & Plan: Hypokalemia to 3.4. We will replete with oral potassium. LUIS JOHNSON DO 02/12/23 1910: Subjective Subjective/Events-last exam Having nausea and vomiting earlier Labs improved UCx pending IV abx maintained Objective Exam General Appearance: No Apparent Distress, WD/WN, Chronically ill Respiratory: Lungs Clear, Normal Breath Sounds Cardiovascular: Regular Rate, Rhythm Assessment/Plan Assessment and Plan Assess & Plan/Chief Complaint IV abx IVF Hold for another day RAJAT DUMAS MD, RESIDENT Feb 12, 2023 09:27 LUIS JOHNSON DO Feb 12, 2023 19:10
[2023-02-12 11:10] VITALS: BP 113/66
[2023-02-12] MEDS: ONDANSETRON INJECTION 4 MG/2 ML (SDV) IV PRN ×2 (11:44→19:55)
[2023-02-12] MEDS: oxyCODONE IMMEDIATE RELEASE 5 MG TABLET PO PRN ×2 (15:05→21:33)
[2023-02-12] MEDS: ENOXAPARIN 40 MG/0.4 ML SYRINGE SC SCH (15:05)
[2023-02-12 15:19] VITALS: BP 114/68
[2023-02-12] MEDS: Sulfamethoxazole/Trimethoprim DS TABLET PO SCH (17:23)
[2023-02-12 19:36] VITALS: BP 117/75
[2023-02-12] MEDS: ACETAMINOPHEN 500 MG TABLET PO PRN (19:55)
[2023-02-12] MEDS: MELATONIN 3 MG TABLET PO PRN (19:55)
[2023-02-12] MEDS ORDERED: PROMETHAZINE INJ 25 MG/ML VIAL IVP PRN (22:00)
[2023-02-12 23:08] VITALS: BP 109/62
[2023-02-13] MEDS: NS IV 1000 ML 1,000 ML IV SCH ×3 (01:26→20:53)
[2023-02-13 03:10] VITALS: BP 102/62
[2023-02-13] MEDS: oxyCODONE IMMEDIATE RELEASE 5 MG TABLET PO PRN ×4 (04:49→20:53)
[2023-02-13 05:58] LABS: HEMATOCRIT 32 % (35-52); HEMOGLOBIN 10.4 g/dL (11.5-16.0); MEAN CORPUSCULAR HEMOGLOBIN 26 pg (25-34); MEAN CORPUSCULAR HGB CONC 33 g/dL (32-36); MEAN CORPUSCULAR VOLUME 80 fL (80-99); MEAN PLATELET VOLUME 10.3 fL (9.0-12.2); PLATELET COUNT 380 10^3/uL (130-400); WHITE BLOOD COUNT 9.6 10^3/uL (4.3-11.0)
[2023-02-13 06:01] LABS: ALBUMIN 3.2 GM/DL (3.2-4.5); POTASSIUM 3.5 MMOL/L (3.6-5.0)
[2023-02-13 06:03] LABS: CALCIUM 8.3 MG/DL (8.5-10.1)
[2023-02-13 06:04] LABS: TOTAL PROTEIN 6.4 GM/DL (6.4-8.2)
[2023-02-13 06:06] LABS: BILIRUBIN,TOTAL 0.2 MG/DL (0.1-1.0)
[2023-02-13 06:07] LABS: CREATININE SERUM 0.59 MG/DL (0.60-1.30)
[2023-02-13 07:55] VITALS: BP 115/73
[2023-02-13] MEDS ORDERED: POTASSIUM CHLORIDE 20 MEQ TABLET PO ONE (08:30)
[2023-02-13] MEDS: MEROPENEM INJECTION 1,000 MG in NS (IVPB) 100 ML 100 ML IV SCH ×2 (09:08→16:48)
[2023-02-13] MEDS: DOCUSATE SODIUM 100 MG CAPSULE PO SCH ×2 (09:08→20:57)
[2023-02-13] MEDS: Sulfamethoxazole/Trimethoprim DS TABLET PO SCH ×2 (09:08→16:47)
[2023-02-13] MEDS: SENNOSIDES 8.6 MG TABLET PO SCH ×2 (09:08→20:57)
--- NOTE | 2023-02-13 10:50 | Progress Note ---
MERI GREENE MD,RESIDENT 02/13/23 1050: Subjective HPI/CC On Admission Chief complaint: Acute pyelonephritis HPI: This is a 32-year-old female who presented with acute abdominal pain and fever found to have pyelonephritis in need of IV antibiotics since p.o. was not tolerated. Subjective/Events-last exam Pt resting in bed this morning. She reports that her pain has improved slightly today. She has minimal PO intake, advanced to regular diet overnight. Remains afebrile. Focused Exam Lactate Level 02/11/23 13:01: Lactic Acid Level 0.87 Objective Exam Vital Signs Vital Signs Date Time Temp Pulse Resp B/P (MAP) Pulse Ox O2 Delivery O2 Flow Rate FiO2 02/13/23 07:55 37.0 84 20 115/73 (87) 99 Room Air Capillary Refill : Less Than 3 Seconds General Appearance: No Apparent Distress Respiratory: Lungs Clear, Normal Breath Sounds, No Accessory Muscle Use, No Respiratory Distress Cardiovascular: Regular Rate, Rhythm Gastrointestinal: Soft, Tenderness (R flank, improved from previous day) Neurologic/Psychiatric: Alert, Oriented x3, No Motor/Sensory Deficits Skin: Warm/Dry Results/Procedures Lab Laboratory Tests 02/13/23 05:37 Patient resulted labs reviewed. Imaging: Reviewed Imaging Films, Reviewed Imaging Report Assessment/Plan Assessment and Plan Assess & Plan/Chief Complaint (1) Sepsis Status: Resolved Assessment & Plan: Patient meets sepsis criteria with leukocytosis and tachycardia. Source of infection at this time is from the urine. Lactate normal. Sepsis resolved at this time as leukocytosis has resolved and patient is no longer tachycardic. Plan: Continue IV fluids, will discontinue if patient tolerates breakfast Antibiotics per below Follow-up blood cultures and urine culture Qualifiers: Qualified Codes: A41.9 - Sepsis, unspecified organism Resolution Date/Time: 02/12/23 @ 09:25 (2) Pyelonephritis Status: Acute Assessment & Plan: Patient noted to have pyelonephritis in the right kidney on CT abdomen/pelvis from yesterday with early signs of pyelonephritis in the left kidney. UA is notable today for infection although does have 10-25 squamous epithelial cells. UCx 02/10 grew ESBL Plan: Discontinue zosyn, started Bactrim and Meropenam in setting of ESBL positive UCx. Will transition to Bactrim only on DC Pain management (3) RUQ abdominal pain Status: Acute Assessment & Plan: Patient noted to have right upper quadrant pain. Gallbladder ultrasound was negative, notable for fatty liver. Lipase also negative. Likely referred pain from pyelonephritis. (4) Nausea & vomiting Status: Resolved Assessment & Plan: Tolerating oral intake today. Plan: Continue IV antibiotics as per above Antiemetics Advanced to regular diet Resolution Date/Time: 02/12/23 @ 09:26 (5) Hypokalemia Status: Acute Assessment & Plan: Hypokalemia to 3.4. We will replete with oral potassium. LUIS JOHNSON DO 02/13/23 1514: Subjective HPI/CC On Admission Date Seen by Provider: Feb 13, 2023 Time Seen by Provider: 09:00 Subjective/Events-last exam ESBL noted on culture 2 days ago Mixed kin on this culture Still some nausea so we will continue IV fluids Changing to meropenem Objective Exam General Appearance: No Apparent Distress, WD/WN, Chronically ill Respiratory: Lungs Clear, Normal Breath Sounds Cardiovascular: Regular Rate, Rhythm Assessment/Plan Assessment and Plan Assess & Plan/Chief Complaint Add meropenem DC Zosyn IV fluids MERI GREENE MD,RESIDENT Feb 13, 2023 10:50 LUIS JOHNSON DO Feb 13, 2023 15:14
[2023-02-13 11:37] VITALS: BP 123/85
[2023-02-13] MEDS: ENOXAPARIN 40 MG/0.4 ML SYRINGE SC SCH (15:26)
[2023-02-13 16:25] VITALS: BP 120/71
[2023-02-13 20:21] VITALS: BP 116/65
[2023-02-13] MEDS: ACETAMINOPHEN 500 MG TABLET PO PRN (20:49)
[2023-02-13 21:58] VITALS: BP 117/67
[2023-02-13] MEDS: MELATONIN 3 MG TABLET PO PRN (22:09)
[2023-02-14] VITALS: BP 106/58
[2023-02-14] MEDS: MEROPENEM INJECTION 1,000 MG in NS (IVPB) 100 ML 100 ML IV SCH ×2 (00:21→08:04)
[2023-02-14 04:37] VITALS: BP 106/65
[2023-02-14] MEDS: oxyCODONE IMMEDIATE RELEASE 5 MG TABLET PO PRN (04:52)
[2023-02-14 06:16] LABS: HEMATOCRIT 33 % (35-52); HEMOGLOBIN 10.5 g/dL (11.5-16.0); MEAN CORPUSCULAR HEMOGLOBIN 26 pg (25-34); MEAN CORPUSCULAR HGB CONC 32 g/dL (32-36); MEAN CORPUSCULAR VOLUME 80 fL (80-99); MEAN PLATELET VOLUME 9.9 fL (9.0-12.2); PLATELET COUNT 444 10^3/uL (130-400)
[2023-02-14 06:35] LABS: ALBUMIN 3.3 GM/DL (3.2-4.5); POTASSIUM 3.8 MMOL/L (3.6-5.0)
[2023-02-14 06:36] LABS: CALCIUM 8.5 MG/DL (8.5-10.1)
[2023-02-14 06:37] LABS: TOTAL PROTEIN 6.7 GM/DL (6.4-8.2)
[2023-02-14 06:39] LABS: BILIRUBIN,TOTAL 0.2 MG/DL (0.1-1.0)
[2023-02-14 06:41] LABS: CREATININE SERUM 0.57 MG/DL (0.60-1.30)
[2023-02-14 07:34] VITALS: BP 117/64
[2023-02-14] MEDS: NS IV 1000 ML 1,000 ML IV SCH (08:04)
[2023-02-14] MEDS: Sulfamethoxazole/Trimethoprim DS TABLET PO SCH (08:04)
[2023-02-14] MEDS: DOCUSATE SODIUM 100 MG CAPSULE PO SCH (08:04)
[2023-02-14] MEDS: SENNOSIDES 8.6 MG TABLET PO SCH (08:05)
[2023-02-14] MEDS ORDERED: SULF1TAB38 PO ×2 (10:48→11:39)
[2023-02-14 11:22] VITALS: BP 122/70
--- NOTE | 2023-02-14 11:37 | Discharge Summary ---
Diagnosis/Chief Complaint Date of Admission Feb 13, 2023 at 15:53 Date of Discharge 02/14/23 Admission Diagnosis Admission Diagnosis Sepsis Pyelonephritis EBSL RUQ abdominal pain Nausea and Vomiting Hypokalemia Suicidal Ideation Discharge Diagnosis See Above Discharge Summary-Simple/Stand Consultations Discharge Physical Examination Allergies: Coded Allergies: No Known Drug Allergies (Unverified , 12/13/22) Vitals & I&Os Vital Sign - Last 12Hours Date Time Temp Pulse Resp B/P (MAP) Pulse Ox O2 Delivery O2 Flow Rate FiO2 02/14/23 11:22 36.5 103 20 122/70 (87) 97 Room Air Intake and Output 02/13/23 23:59 Intake Total 2460 ml Balance 2460 ml General Appearance: Alert, Oriented X3, Other ( translated) Respiratory: Clear to Auscultation, Normal Air Movement Cardiovascular: Regular Rate, No Murmurs Abdominal: Normal Bowel Sounds, Soft, No Tenderness Extremities: No Edema, No Tenderness/Swelling Neuro: Normal Speech, Cranial Nerves 3-12 NL Hospital Course See final discharge diagnosis. Discussion & Recommendations 32 yo F with h/o EBSL pyelonephritis that presented with worsening flank pain and N/V. She was started on IV antibiotics and previous cultures showed EBSL. On day of d/c patient was tolerating PO diet and ambulation. Pain was well controlled. She will have 4 days of oral antibiotics to complete at home. Will have close f.u with PCP Discharge Condition at discharge Stable Instructions to patient/family Please see electronic discharge instructions given to patient. Discharge Medications Reviewed and agree with Discharge Medication list on patient's Discharge Instruction sheet HUYEN RODNEY MD Feb 14, 2023 11:37
--- NOTE | 2023-02-14 11:40 | Discharge Summary ---
Discharge [facility] Reconcile Patient Problems Problems Reviewed?: Yes Discharge Medications New, Converted or Re-Newed RX: Transmitted to Pharmacy New Medications: Sulfamethoxazole/Trimethoprim (Bactrim Ds Tablet) 1 Each Tablet 1 EA PO BID WITH MEALS, #8 TAB Continued Medications: Ondansetron (Ondansetron Odt) 4 Mg Tab.rapdis 4 MG SL Q4H PRN for NAUSEA/VOMITING-1ST LINE, TAB Discontinued Medications: Ciprofloxacin HCl (Cipro) 500 Mg Tablet 500 MG PO BID, TAB FILLED 02-10-2023 #14/7 DAY SUPPLY Sulfamethoxazole/Trimethoprim (Bactrim Ds Tablet) 1 Each Tablet 1 EACH PO BID for 5 Days, #10 TAB 0 Refills Patient Instructions Goal/Follow Up Appt: 1 week with PCP Activity & Diet Discharge Diet: Regular Diet, Low Residue HUYEN RODNEY MD Feb 14, 2023 11:40
[2023-02-14 12:20] VITALS: BP 122/70
== END 2023-02-14 12:27 | disposition home or self-care (01) | DRG 872 ==
LOC: EDUNIT# 12:15 → ER 12:18 → 4TH 13:59 → OBSVTOIN 02-13 15:53 → 4TH 02-14 10:48
PROVIDERS: ADMIT Internal Medicine; ATTEND Family Medicine
DX: A41.9 Sepsis, unspecified organism (principal); Z16.12 Extended spectrum beta lactamase (ESBL) resistance; R45.851 Suicidal ideations; N10 Acute pyelonephritis; B96.20 Unspecified Escherichia coli [E. coli] as the cause of diseases classified elsewhere; E87.6 Hypokalemia
CPT/HCPCS: 36415; 76705; 80053; 81000; 83605; 83690; 85025; 85027; 86141; 87040; 87088